=== PATIENT | male | born 1965 | race African-American/Black ===

== ENCOUNTER 2018-07-24 12:16 | Emergency (ER) | payer MEDICAID ==
[~2018-07-24] VITALS: Ht 185.4 cm; Wt 185.0 kg
[~2018-07-24 12:16] MED LIST: BISA5TAB10 PO
[2018-07-24 12:33] VITALS: BP 163/114
== END 2018-07-25 04:43 | disposition left against medical advice (07) ==
LOC: ER 14:07
DX: Z53.21 Procedure and treatment not carried out due to patient leaving prior to being seen by health care provider (principal)

== ENCOUNTER 2018-10-04 12:09 | Emergency (ER) | payer BC, MEDICAID ==
[~2018-10-04] VITALS: Ht 185.4 cm; Wt 89.0 kg
[2018-10-04] MEDS ORDERED: SODIUM CHLORIDE 0.9% 1,000 ML IV ONE (13:07)
[2018-10-04] MEDS ORDERED: MORPHINE SULFATE 4 MG/ML CPJ (NOT FOR IM USE) IV STA (13:07)
[2018-10-04] MEDS ORDERED: ONDANSETRON HCL 4MG/2ML INJ IV STA (13:07)
[2018-10-04 14:15] LABS: CLARITY URINE CLEAR (CLEAR); COLOR URINE ORANGE (YELLOW); KETONES URINE 2+ (NEGATIVE); LEUKOCYTE ESTERASE URINE TRACE (NEGATIVE); NITRITE URINE POSITIVE (NEGATIVE); OCCULT BLOOD URINE NEGATIVE (NEGATIVE); PH URINE 5.5 (4.5-8.0); PROTEIN URINE 1+ (NEGATIVE); SPECIFIC GRAVITY URINE 1.034 (1.005-1.030)
[2018-10-04 14:26] LABS: BASOPHILS % 0.3 % (0.0-2.0); EOSINOPHILS % 0.2 % (0.0-5.0); HEMATOCRIT. 42.7 % (42.0-52.0); HEMOGLOBIN. 14.5 g/dL (14.0-18.0); LYMPHOCYTES % 12.1 % (20.0-50.0); MEAN CORPUSCULAR HEMOGLOBIN 34.2 pg (28.0-32.0); MEAN PLATELET VOLUME 8.2 fl (7.4-10.4); MONOCYTES % 9.6 % (2.0-8.0); NEUTROPHILS % 77.8 % (40.0-76.0); PLATELET 244 x1000/uL (130-400); RED BLOOD CELL COUNT 4.23 mill/uL (4.7-6.1); RED CELL DISTRIBUTION WIDTH 13.4 % (11.6-14.6)
[2018-10-04 14:29] LABS: CHLORIDE 103 mEq/L (98-107)
[2018-10-04 14:30] LABS: INR 1.1; PROTHROMBIN TIME 11.4 sec (9.6-11.0)
[2018-10-04 14:50] VITALS: BP 131/81
== END 2018-10-04 16:25 | disposition home or self-care (01) ==
LOC: ER 12:09
DX: S36.62XA Contusion of rectum, initial encounter (principal); N39.0 Urinary tract infection, site not specified; X58.XXXA Exposure to other specified factors, initial encounter; Y93.89 Activity, other specified; Y92.89 Other specified places as the place of occurrence of the external cause; Y99.8 Other external cause status
CPT/HCPCS: 36415; 74176; 80053; 81003; 83690; 85025; 85610; 96374; 96375; 99284; J2270; J2405; J7030